=== PATIENT | male | born 1955 | race Caucasian/White ===

== ENCOUNTER 2023-12-05 12:41 | Outpatient (AMB) | payer BC, SELFPAY ==
--- NOTE | 2023-12-05 12:53 | A.OFFVIS_ITS ---
Vital Signs 12/05/23 13:05 Weight 177 lb 4.026 oz BP 130/72 Blood Pressure Location Rt brachial Position Sitting Pulse 89 Pulse Source Pulse Oximeter Pulse Oximetry (%) 95 Oxygen Delivery Method Room Air Intake Visit Reasons: RA Intake Note: New patient, externally referred by [facility], presents to office today for RA. 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 Accompanied by: Self / Same As Patient Allergies amoxicillin [From Augmentin] Allergy (Verified 12/05/23 13:09) Vomiting clavulanic acid [From Augmentin] Allergy (Verified 12/05/23 13:09) Vomiting duloxetine Allergy (Verified 12/05/23 13:09) Nausea Sulfa (Sulfonamide Antibiotics) Allergy (Verified 12/05/23 13:09) Hives trazodone Allergy (Verified 12/05/23 13:09) Nausea Medication List - Last Reconciled 12/05/23 by Sumit Patton MD cyanocobalamin (vitamin B-12) 1,000 mcg IM nneqzftmxti-gihhadxqu-zcskmjob 200-62.5-25 mcg (Trelegy Ellipta) 1 ea inhalation DAILY gabapentin 800 mg PO TID lisinopril 20 mg PO DAILY lorazepam 1 mg PO TID morphine ER 30 mg PO BID omeprazole 40 mg PO DAILY oxycodone 10 mg PO QID PRN simvastatin 20 mg PO BEDTIME HPI Comments Details: This is a 68-year-old male with seropositive RA who presents as a new patient for me. She previously evaluated by Dr. Morrow and Dr. Goodwin. Was diagnosed with rheumatoid arthritis approximately 15-20 years ago. He was started on different NSAIDs which were not very effective and not well-tolerated. He has been taking hydroxychloroquine generally for 1 year and it did not provide much relief, he ran out about a week ago. He has been having diffuse joint pain including his hands, wrists, knees, feet, ankles. Morning stiffness lasting all day. He has noticed progressive deformities of his hands, ankles and feet over the last 2 years. Patient chronic smoker and continues to smoke at least 1 pack per day. States that he has not had any COPD exacerbations recently. Unaware of any history of heart disease. States that his paternal grandmother had severe RA. [facility] Medical History Scoliosis Low back pain Chronic obstructive pulmonary disease (COPD) suggested by initial evaluation Major depression, melancholic type Tobacco use Chronic alcoholism in remission Anxiety state Vitamin D deficiency GERD (gastroesophageal reflux disease) Peripheral vascular disease Benign essential hypertension Chronic pain Mixed hyperlipidemia Rheumatoid arthritis Surgical History History of back surgery Hx of tonsillectomy Family History Father COPD (chronic obstructive pulmonary disease) Mother No problems noted. Paternal Grandmother Stroke Rheumatoid arthritis Social History Alcohol intake: current Alcohol intake frequency: does not drink Patient Tobacco Use Status: Current everyday Tobacco user Cigarette Packs Per Day: 1 Review of Systems Const Reports fatigue and Reports weakness Eyes Reports irritation Musc Reports back pain, Reports deformity, Reports arthralgias, Reports joint swelling, Reports limited range of motion and Reports stiffness Skin/Breast Reports unusual bruising Neuro Reports weakness Psych Reports abnormal sleep pattern, Reports anxiety and Reports depression Endo Reports fatigue Physical Exam Vital Signs: Last Vital Signs Pulse 89 12/05/23 13:05 BP 130/72 12/05/23 13:05 Pulse Ox 95 12/05/23 13:05 Oxygen Delivery Method Room Air 12/05/23 13:05 Const Other: Chronically sick-appearing General: cooperative, comfortable, poor hygiene and tired appearing Limitations: ambulation with cane HEENT Head: Yes atraumatic Eyes Other: Bilateral conjunctival erythema Resp Effort & Inspection: normal respiratory effort and able to speak in complete sentences Auscultation: diminished lung sounds Skin General skin exam: no rashes or lesions noted Extrem Other: Significant RA changes of both hands No wrist tenderness but bilateral wrist pain with flexion and extension Significant left 2nd MCP boggy swelling without tenderness Subluxation of thumbs bilaterally [place]-neck deformity of right 3rd finger Significant synovial boggy swelling of right 2nd MCP 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 CCP> 250? B12 623 normal TSH 1.39 normal HbA1c 6.2% C4 15.6 (17.4-52.2) C3 101 normal CMP unremarkable CBC unremarkable Assessment & Plan Assessment & Plan (1) Rheumatoid arthritis: Comment: +++CCP onset approx 2004 HCQ 2022 for 1 year DC 11/2023 ineffective Code(s): M06.9 - Rheumatoid arthritis, unspecified Category: Medical Qualifiers: Rheumatoid arthritis location: multiple sites Rheumatoid factor presence: with rheumatoid factor Qualified Code(s): M05.79 - Rheumatoid arthritis with rheumatoid factor of multiple sites without organ or systems involvement Plan: This is a 68-year-old male with seropositive erosive RA who presents as a new patient for me. Patient has had seropositive RA for many years without treatment and has significant deformities. He has been taking hydroxychloroquine for approximately 1 year and discontinued it last week. It did not provide much help. It does not look like he has been on any other DMARDs. Patient is chronic smoker, continues to smoke. Has COPD. He also has bilateral lower limb pitting edema. Will check a 2D echo. Patient eventually will need PFTs and/or HRCT chest Discussed nature of RA and its management . Check labs to evaluate disease activity. Start prednisone taper for relief. Follow-up in 4-6 weeks Plan I spent 49 minutes reviewing patient's chart, evaluating patient, ordering diagnostic workup, counseling patient and documenting in the chart Orders: Orders Comprehensive Met. Panel Today M06.9 - Rheumatoid arthritis, unspecified Erythrocyte Sedimentation Rate Today M06.9 - Rheumatoid arthritis, unspecified Immunofixation Pnl, Serum Today M06.9 - Rheumatoid arthritis, unspecified Protein Electrophoresis, Serum Today M06.9 - Rheumatoid arthritis, unspecified Complete Blood Count Auto Diff Today M06.9 - Rheumatoid arthritis, unspecified C Reactive Protein Today M06.9 - Rheumatoid arthritis, unspecified Hepatitis A,B,C Profile Today Z11.59 - Encounter for screening for other viral diseases T Spot TB Today Z11.7 - Encounter for testing for latent tuberculosis infection Rheumatoid Factor Today M06.9 - Rheumatoid arthritis, unspecified CA echo transthoracic complete Today R60.9 - Edema, unspecified Protein Creatinine Ratio, Ur Today M05.79 - Rheumatoid arthritis with rheumatoid factor of multiple sites without organ or systems involvement UA w Microscopic Today M05.79 - Rheumatoid arthritis with rheumatoid factor of multiple sites without organ or systems involvement Medications: New prednisone Take 2 tabs daily for 2 weeks then remain on 1 tab daily 58 tabs 0RF Coding Level of Care Code New Pt Level 4 (21574) Diagnoses Rheumatoid arthritis involving multiple sites with positive rheumatoid factor M05.79 Rheumatoid arthritis location: multiple sites Rheumatoid factor presence: with rheumatoid factor
[2023-12-05 13:05] VITALS: BP 130/72; PULSE 89; O2SAT 95
== END 2023-12-05 13:55 | disposition home or self-care (01) ==
PROVIDERS: PCP Family Medicine; Referring Provider Family Medicine; Visit Provider Student in an Organized Health Care Education/Training Program
DX: M05.79 Rheumatoid arthritis with rheumatoid factor of multiple sites without organ or systems involvement (principal)
CPT/HCPCS: 99204

== ENCOUNTER → 2023-12-05 12:41 | Outpatient (BNVA) | payer BC, SELFPAY | PROVIDERS: PCP Family Medicine; Referring Provider Family Medicine; Visit Provider Student in an Organized Health Care Education/Training Program ==

== ENCOUNTER 2024-01-03 13:18 | Outpatient (AMB) | payer BC, SELFPAY ==
--- NOTE | 2024-01-03 13:20 | MHC.OFFVIS ---
Vital Signs 01/03/24 13:22 Height 5 ft 11 in Weight 182 lb 1.629 oz BMI 25.4 BP 104/58 L Blood Pressure Location Lt brachial Position Sitting Pulse 90 Pulse Source Pulse Oximeter Intake Visit Reasons: RA/LVM Intake Note: Patient last seen 12/05/23 presents today for follow up and test results. 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 Accompanied by: Self / Same As Patient Allergies amoxicillin [From Augmentin] Allergy (Verified 01/03/24 13:23) Vomiting clavulanic acid [From Augmentin] Allergy (Verified 01/03/24 13:23) Vomiting duloxetine Allergy (Verified 01/03/24 13:23) Nausea Sulfa (Sulfonamide Antibiotics) Allergy (Verified 01/03/24 13:23) Hives trazodone Allergy (Verified 01/03/24 13:23) Nausea Medication List - Last Reconciled 01/03/24 by Sumit Patton MD cyanocobalamin (vitamin B-12) 1,000 mcg IM [id number]-efyumsexb-aexigeev 200-62.5-25 mcg (Trelegy Ellipta) 1 ea inhalation DAILY gabapentin 800 mg PO TID lisinopril 20 mg PO DAILY lorazepam 1 mg PO TID morphine ER 30 mg PO BID omeprazole 40 mg PO DAILY oxycodone 10 mg PO QID PRN prednisone Take 2 tabs daily for 2 weeks then remain on 1 tab daily simvastatin 20 mg PO BEDTIME HPI Comments Details: Patient returns for follow-up after completion of his diagnostic workup. He took the prednisone as prescribed. He is currently on 10 mg once daily. He states that he feels better overall. Continues to have intermittent Raynaud's joint pain stiffness and swelling. Initial history: This is a 68-year-old male with seropositive RA who presents as a new patient for me. She previously evaluated by Dr. Morrow and Dr. Goodwin. Was diagnosed with rheumatoid arthritis approximately 15-20 years ago. He was started on different NSAIDs which were not very effective and not well-tolerated. He has been taking hydroxychloroquine generally for 1 year and it did not provide much relief, he ran out about a week ago. He has been having diffuse joint pain including his hands, wrists, knees, feet, ankles. Morning stiffness lasting all day. He has noticed progressive deformities of his hands, ankles and feet over the last 2 years. Patient chronic smoker and continues to smoke at least 1 pack per day. States that he has not had any COPD exacerbations recently. Unaware of any history of heart disease. States that his paternal grandmother had severe RA. [facility] Medical History Scoliosis Low back pain Chronic obstructive pulmonary disease (COPD) suggested by initial evaluation Major depression, melancholic type Tobacco use Chronic alcoholism in remission Anxiety state Vitamin D deficiency GERD (gastroesophageal reflux disease) Peripheral vascular disease Benign essential hypertension Chronic pain Mixed hyperlipidemia Rheumatoid arthritis Surgical History History of back surgery Hx of tonsillectomy Family History Father COPD (chronic obstructive pulmonary disease) Mother No problems noted. Paternal Grandmother Stroke Rheumatoid arthritis Social History Alcohol intake: current Alcohol intake frequency: does not drink Patient Tobacco Use Status: Current everyday Tobacco user Cigarette Packs Per Day: 1 Review of Systems Musc Reports back pain, Reports deformity, Reports arthralgias, Reports joint swelling, Reports limited range of motion and Reports stiffness Skin/Breast Reports unusual bruising Physical Exam Vital Signs: Last Vital Signs Pulse 90 01/03/24 13:22 BP 104/58 L 01/03/24 13:22 BMI result Body Mass Index 25.4 Const Other: Chronically sick-appearing General: cooperative, comfortable, poor hygiene and tired appearing Limitations: ambulation with cane HEENT Head: Yes atraumatic Resp Effort & Inspection: normal respiratory effort and able to speak in complete sentences Auscultation: crackles bilateral at the base and diminished lung sounds Cardio Rate: regular rate Rhythm: regular rhythm Skin General skin exam: no rashes or lesions noted Extrem Other: Significant RA changes of both hands No wrist tenderness to palpation or pain with full flexion-extension bilaterally Significant left 2nd MCP boggy swelling without tenderness Squaring of bilateral 1st CMC joints Subluxation of thumbs bilaterally [place]-neck deformity of right 3rd finger Significant synovial boggy swelling of right 2nd MCP 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 CCP> 250? B12 623 normal TSH 1.39 normal HbA1c 6.2% C4 15.6 (17.4-52.2) C3 101 normal CMP unremarkable CBC unremarkable Assessment & Plan Assessment & Plan (1) Rheumatoid arthritis: Comment: +++CCP+++RF onset approx 2004 HCQ 2022 for 1 year DC 11/2023 ineffective Code(s): M06.9 - Rheumatoid arthritis, unspecified Category: Medical Qualifiers: Rheumatoid arthritis location: multiple sites Rheumatoid factor presence: with rheumatoid factor Qualified Code(s): M05.79 - Rheumatoid arthritis with rheumatoid factor of multiple sites without organ or systems involvement Plan: This is a 68-year-old male with seropositive erosive RA who presents for follow-up after completion of his blood work. Patient has longstanding seropositive erosive RA with multiple deformities. He is much better overall since he was started on prednisone. Will need to start a DMARD. Patient failed hydroxychloroquine. Discussed risks and benefits of methotrexate. Patient agreed to proceed. Will start methotrexate 15 mg once weekly for 2 weeks then 20 mg once weekly Start folic acid 1 mg daily Continue prednisone 10 mg daily for 2 weeks then remain on 5 mg daily Labs before next visit in 2 months (2) Lung crackles: Code(s): R09.89 - Other specified symptoms and signs involving the circulatory and respiratory systems Category: Medical Plan: 2D echo scheduled on 01/08. 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 Patient aware to call the office in case he gets any significant side effects. Monitor safety labs regularly Plan I spent 25 minutes reviewing patient's chart, evaluating patient, ordering diagnostic workup, counseling patient and documenting in the chart Orders: Orders Complete Blood Count Auto Diff 2 Months M05.79 - Rheumatoid arthritis with rheumatoid factor of multiple sites without organ or systems involvement Comprehensive Met. Panel 2 Months M0579 - Rheumatoid arthritis with rheumatoid factor of multiple sites without organ or systems involvement C Reactive Protein 2 Months M05.79 - Rheumatoid arthritis with rheumatoid factor of multiple sites without organ or systems involvement Erythrocyte Sedimentation Rate 2 Months M05.79 - Rheumatoid arthritis with rheumatoid factor of multiple sites without organ or systems involvement CT chest wo con - High Res Today M05.79 - Rheumatoid arthritis with rheumatoid factor of multiple sites without organ or systems involvement, R09.89 - Other specified symptoms and signs involving the circulatory and respiratory systems Medications: New prednisone Take 2 tabs daily for 2 weeks then remain on 1 tab daily 80 tabs 0RF methotrexate sodium Take 6 tabs once weekly for 2 weeks then 8 tabs once weekly 64 tabs 0RF folic acid 1 mg PO DAILY 90 tabs 1RF Discontinued prednisone Discontinued Reason: Doctor's Order Take 2 tabs daily for 2 weeks then remain on 1 tab daily 58 tabs 0RF Coding Level of Care Code Est Pt Level 4 (30441) Diagnoses Rheumatoid arthritis involving multiple sites with positive rheumatoid factor M05.79 Rheumatoid arthritis location: multiple sites Rheumatoid factor presence: with rheumatoid factor Lung crackles R09.89 termite exterminator helper methotrexate user Z79.631
[2024-01-03 13:22] VITALS: BP 104/58; PULSE 90; BMI 25.4
== END 2024-01-03 13:54 | disposition home or self-care (01) ==
PROVIDERS: PCP Family Medicine; Visit Provider Student in an Organized Health Care Education/Training Program
DX: M05.79 Rheumatoid arthritis with rheumatoid factor of multiple sites without organ or systems involvement (principal); R09.89 Other specified symptoms and signs involving the circulatory and respiratory systems; Z79.631 Long term (current) use of antimetabolite agent
CPT/HCPCS: 99214

== ENCOUNTER → 2024-01-03 13:18 | Outpatient (BNVA) | payer BC, SELFPAY | PROVIDERS: PCP Family Medicine; Visit Provider Student in an Organized Health Care Education/Training Program ==

== ENCOUNTER → 2024-01-19 14:38 | Outpatient (REF) | payer BC, SELFPAY ==
--- NOTE | 2024-01-19 14:41 | CA_ITS ---
Transthoracic Echocardiogram Patient (Last, First, Middle): Luisito Padilla C Gender: Male Date of : 1955 Age: 69 Procedure Date: 01/19/2024 Procedure Type: Transthoracic Echocardiogram Location: OP Height: 182.88 cm Weight: 81.65 kg BSA: 2.04 m2 Heart Rate: bpm BP: 108 / 68 mmHg Environmental Science Program Director: TO Referring MD: Sumit Patton MD Punch Press Setter: Sunny Bella MD Symptoms: R60.9 - Edema, unspecified Study Quality: Adequate ECG Rhythm: Sinus Conclusions: - 1. Normal LV ejection fraction of 60 65% with impaired relaxation filling pattern 2. Cardiac valvular Dopplers within normal limits 3. Upper limits of normal ascending aorta 4. No gross pericardial effusion Findings Left Ventricle Normal left ventricular size, thickness, and systolic function. The visually estimated ejection fraction is between 60-65%. Spectral Doppler is indicative of a normal filling pattern. possible basal inferior hypokinesis although off axis views can not be entirely ruled out Right Ventricle Mildly increased right ventricular cavity size. There is normal right ventricular systolic function. Atria Both atria are normal in size. There is lipomatous hypertrophy of the interatrial septum. There is no evidence of interatrial shunt. Mitral Valve Normal mitral valve structure and function. There is no mitral valve regurgitation. There is no mitral valve stenosis. Pulmonic Valve The pulmonic valve is likely normal. There is trace pulmonic valve regurgitation. Tricuspid Valve Likely normal tricuspid valve structure and function. Tricuspid regurgitation envelope is inadequate for calculation of right ventricular systolic pressure. Normal right atrial pressure. Great Vessels The pulmonary artery was not well visualized. Small plaque is seen in the sino tubular ridge. Venous The inferior vena cava is normal in size and collapses greater than 50% with inspiration. Pericardium/Pleural There is no evidence of pericardial effusion. Prior Study Comparison No prior study available for comparison. Measurements 2D Linear Measurements IVSd: 0.82 0.6-0.9/0.6-1.0 cm LVIDd: 4.87 3.9-5.3/4.2-5.9 cm LVIDd Index: 2.39 2.4-3.2/2.2-3.1 cm/m2 LVIDs: 3.62 2.0-3.6 cm LVPWd: 0.85 0.7-1.1 cm LA Diam: 2.80 2.7-3.8/3.0-4.0 cm LAIDs Index: 1.37 1.5-2.3 cm/m2 LV Mass: 169.99 67-162/88-224 g LV Mass Index: 83.33 43-95/49-115 g/m2 LVOT Diam: 2.10 3.0+(-)1.3 cm 2D Systolic Function EF 4C: 57.50 >55% EF 2C: 61.90 >55% EF BiP: 61.00 >55% Mitral Valve MV Pk E: 0.57 MV PK A: 0.45 MV Decel Time: 213.00 E/A: 1.20 E'Lateral: 8.70 E'Medial: 7.51 E/E' Med: 7.50 E/E' Lat: 6.50 PHT: 62.00 MVA PHT: 3.55 Decel Marshall: 2.66 Aortic Valve AoV Pk Dereck: 1.21 AoV Mn Dereck: 0.84 AoV VTI: 0.21 AoV Pk Grad: 6.00 Aov Mn Grad: 3.00 EPTR Cont.VTI: 2.95 LVOT LVOT Pk Dereck: 0.88 LVOT Mn Dereck: 0.61 LVOT VTI: 0.18 LVOT Pk Grad: 3.00 LVOT Mn Grad: 2.00 LVOT Diam: 2.10 LVOT Area: 3.46 Diastolic Function MV Pk E: 0.57 MV Pk A: 0.45 E/A: 1.20 E'Medial: 7.51 E/E' Med: 7.50 E' Laterial: 8.70 E/E' Lat: 6.50 Right Ventricle TAPSE (mm): 21.50 TVS' Dereck: 12.30 Tricuspid Valve RA Press: 3.00 Great Vessels Aorta Sinus of Valsalva: 4.03 2.0-3.[address] [place]: 2.61 1.7-3.4 cm Ao Asc: 3.50 2.1-3.4 cm Updated in Other Vendor System with Status of Final Sunny Bella MD electronically signed on 01/19/2024 4:01:24 PM with status of Final
== END ==
LOC: HO.CARD 14:38
PROVIDERS: PCP Family Medicine; Visit Provider Student in an Organized Health Care Education/Training Program
DX: R60.0 Localized edema (principal)
CPT/HCPCS: 93306

== ENCOUNTER → 2024-01-19 14:41 | Outpatient (BNV) | payer BC, SELFPAY | PROVIDERS: PCP Family Medicine; Visit Provider Internal Medicine Cardiovascular Disease | DX: I42.2 Other hypertrophic cardiomyopathy (principal) | CPT/HCPCS: 93306 ==

== ENCOUNTER 2024-04-09 15:12 | Outpatient (AMB) | payer BC, SELFPAY ==
--- NOTE | 2024-04-09 15:36 | A.OFFVIS_ITS ---
Vital Signs 04/09/24 15:39 Height 5 ft 11 in Weight 182 lb 1.629 oz BMI 25.4 BP 102/60 Blood Pressure Location Rt brachial Position Sitting Pulse 89 Pulse Source Pulse Oximeter Pulse Oximetry (%) 95 Oxygen Delivery Method Room Air Intake Visit Reasons: RA Intake Note: Patient presents for RA. Allergies amoxicillin [From Augmentin] Allergy (Verified 04/09/24 15:38) Vomiting clavulanic acid [From Augmentin] Allergy (Verified 04/09/24 15:38) Vomiting duloxetine Allergy (Verified 04/09/24 15:38) Nausea Sulfa (Sulfonamide Antibiotics) Allergy (Verified 04/09/24 15:38) Hives trazodone Allergy (Verified 04/09/24 15:38) Nausea methotrexate Adverse Reaction (Intermediate, Verified 04/09/24 16:11) GI upset Medication List - Last Reconciled 04/09/24 by Sumit Patton MD cyanocobalamin (vitamin B-12) 1,000 mcg IM [id number] 200-62.5-25 mcg (Trelegy Ellipta) 1 ea inhalation DAILY gabapentin 800 mg PO TID leflunomide 10 mg PO DAILY lisinopril 20 mg PO DAILY lorazepam 1 mg PO TID morphine ER 30 mg PO BID omeprazole 40 mg PO DAILY oxycodone 10 mg PO QID PRN prednisone 5 mg PO DAILY simvastatin 20 mg PO BEDTIME HPI Comments Details: 69-year-old male with seropositive RA returns for follow-up. He took methotrexate as prescribed for 3-4 weeks and could not tolerate it due to GI upset, soft stools, mouth pain. He has been taking prednisone 5 mg daily. He ran out a few days ago. He states that denies to have flare-ups, has flare-ups about 15 days out of the month. Today is a good day Initial history: This is a 68-year-old male with seropositive RA who presents as a new patient for me. She previously evaluated by Dr. Morrow and Dr. Goodwin. Was diagnosed with rheumatoid arthritis approximately 15-20 years ago. He was started on different NSAIDs which were not very effective and not well- tolerated. He has been taking hydroxychloroquine generally for 1 year and it did not provide much relief, he ran out about a week ago. He has been having diffuse joint pain including his hands, wrists, knees, feet, ankles. Morning stiffness lasting all day. He has noticed progressive deformities of his hands, ankles and feet over the last 2 years. Patient chronic smoker and continues to smoke at least 1 pack per day. States that he has not had any COPD exacerbations recently. Unaware of any history of heart disease. States that his paternal grandmother had severe RA. [facility], [facility] Medical History (Updated 04/09/24 @ 16:15 by Sumit Patton MD) Scoliosis Low back pain Chronic obstructive pulmonary disease (COPD) suggested by initial evaluation Major depression, melancholic type Tobacco use Chronic alcoholism in remission Anxiety state Vitamin D deficiency GERD (gastroesophageal reflux disease) Peripheral vascular disease Benign essential hypertension Chronic pain Mixed hyperlipidemia Rheumatoid arthritis Surgical History History of back surgery Hx of tonsillectomy Family History Father COPD (chronic obstructive pulmonary disease) Mother No problems noted. Paternal Grandmother Stroke Rheumatoid arthritis Social History Alcohol intake: current Alcohol intake frequency: does not drink Patient Tobacco Use Status: Current everyday Tobacco user Cigarette Packs Per Day: 1 Review of Systems Musc Reports back pain, Reports deformity, Reports arthralgias, Reports joint swelling, Reports limited range of motion and Reports stiffness Skin/Breast Reports unusual bruising Physical Exam Vital Signs: Last Vital Signs Pulse 89 04/09/24 15:39 BP 102/60 04/09/24 15:39 Pulse Ox 95 04/09/24 15:39 Oxygen Delivery Method Room Air 04/09/24 15:39 BMI result Body Mass Index 25.4 Const Other: Chronically sick-appearing General: cooperative, comfortable, poor hygiene and tired appearing Limitations: ambulation with cane HEENT Head: Yes atraumatic Resp Effort & Inspection: normal respiratory effort and able to speak in complete sentences Auscultation: crackles bilateral at the base and diminished lung sounds Cardio Rate: regular rate Rhythm: regular rhythm Skin General skin exam: no rashes or lesions noted Extrem Other: Significant RA changes of both hands No wrist tenderness to palpation or pain with full flexion-extension bilaterally Significant left 2nd MCP boggy swelling without tenderness Squaring of bilateral 1st CMC joints Subluxation of thumbs bilaterally [place]-neck deformity of right 3rd finger Significant synovial boggy swelling of right 2nd MCP 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 CCP> 250? B12 623 normal TSH 1.39 normal HbA1c 6.2% C4 15.6 (17.4-52.2) C3 101 normal CMP unremarkable CBC unremarkable Assessment & Plan Assessment & Plan (1) Rheumatoid arthritis: Comment: +++CCP+++RF onset approx 2004 HCQ 2022 for 1 year DC 11/2023 ineffective MTX 01/2024 DC due to GI upset, diarrhea, mouth pain Code(s): M06.9 - Rheumatoid arthritis, unspecified Category: Medical Qualifiers: Rheumatoid arthritis location: multiple sites Rheumatoid factor presence: with rheumatoid factor Qualified Code(s): M05.79 - Rheumatoid arthritis with rheumatoid factor of multiple sites without organ or systems involvement Plan: This is a 69-year-old male with seropositive erosive RA who presents for follow- up patient could not tolerate methotrexate due to significant GI side effects. Remains on prednisone 5 mg daily. Doing well today with no active synovitis but patient states that he has flare-ups about half the time Discussed risks and benefits of leflunomide . Patient agreed to proceed Start leflunomide 10 mg daily for 1 month. Check done work in one-month. If blood work okay with no transaminitis we will increase it to 20 mg daily Labs before next visit in 3 months (2) Lung crackles: Code(s): R09.89 - Other specified symptoms and signs involving the circulatory and respiratory systems Category: Medical Plan: 2D echo within normal With regards to the CT scan, patient could not do it as he has to have a co-pay of 270 dollars. He states that he had a CT scan of the long in the past which showed some abnormality, refused lung biopsy, then a repeat CT scan was negative. He states that he does not want to go through this again. Advised patient to ask his PCP send me the most recent CT chest (3) Encounter for monitoring leflunomide therapy: Code(s): Z51.81 - Encounter for therapeutic drug level monitoring; Z79.899 - Other group home (current) drug therapy Category: Medical Plan: Monitor safety labs Plan I spent 25 minutes reviewing patient's chart, evaluating patient, ordering diagnostic workup, counseling patient and documenting in the chart Orders: Orders Complete Blood Count Auto Diff 3 Months M05.79 - Rheumatoid arthritis with rheumatoid factor of multiple sites without organ or systems involvement, Z79.631 - intermediate frame tender (current) use of antimetabolite agent C Reactive Protein 3 Months M05.79 - Rheumatoid arthritis with rheumatoid factor of multiple sites without organ or systems involvement, Z79.631 - intermediate frame tender (current) use of antimetabolite agent Complete Blood Count Auto Diff 1 Month M05.79 - Rheumatoid arthritis with rheumatoid factor of multiple sites without organ or systems involvement, Z79.631 - custodial (current) use of antimetabolite agent Comprehensive Met. Panel 3 Months M05.79 - Rheumatoid arthritis with rheumatoid factor of multiple sites without organ or systems involvement, Z79.631 - intermediate frame tender (current) use of antimetabolite agent Erythrocyte Sedimentation Rate 3 Months M05.79 - Rheumatoid arthritis with rheumatoid factor of multiple sites without organ or systems involvement, Z79.631 - intermediate frame tender (current) use of antimetabolite agent Comprehensive Met. Panel 1 Month M05.79 - Rheumatoid arthritis with rheumatoid factor of multiple sites without organ or systems involvement, Z79.631 - custodial (current) use of antimetabolite agent C Reactive Protein 1 Month M05.79 - Rheumatoid arthritis with rheumatoid factor of multiple sites without organ or systems involvement, Z79.631 - custodial (current) use of antimetabolite agent Erythrocyte Sedimentation Rate 1 Month M05.79 - Rheumatoid arthritis with rheumatoid factor of multiple sites without organ or systems involvement, Z79.631 - custodial (current) use of antimetabolite agent Medications: New leflunomide 10 mg PO DAILY 30 tabs 0RF M05.79 - Rheumatoid arthritis with rheumatoid factor of multiple sites without organ or systems involvement Refilled prednisone 5 mg PO DAILY 90 tabs 0RF Coding Level of Care Code Est Pt Level 4 (04573) Complex EM visit Add On G2211 Diagnoses Rheumatoid arthritis involving multiple sites with positive rheumatoid factor M05. Rheumatoid arthritis location: multiple sites Rheumatoid factor presence: with rheumatoid factor Lung crackles R09.89 Encounter for monitoring leflunomide therapy Z51.81; Z79.899
[2024-04-09 15:39] VITALS: BP 102/60; PULSE 89; O2SAT 95; BMI 25.4
== END 2024-04-09 16:08 | disposition home or self-care (01) ==
PROVIDERS: PCP Family Medicine; Visit Provider Student in an Organized Health Care Education/Training Program
DX: M05.79 Rheumatoid arthritis with rheumatoid factor of multiple sites without organ or systems involvement (principal); R09.89 Other specified symptoms and signs involving the circulatory and respiratory systems; Z51.81 Encounter for therapeutic drug level monitoring; Z79.899 Other long term (current) drug therapy
CPT/HCPCS: 99214

== ENCOUNTER → 2024-04-09 15:12 | Outpatient (BNVA) | payer BC, SELFPAY | PROVIDERS: PCP Family Medicine; Visit Provider Student in an Organized Health Care Education/Training Program ==